=== PATIENT | female | born 1965 | race Caucasian/White ===

== ENCOUNTER 2016-08-07 07:00 | Day surgery (SDC) | payer OTHER ==
[~2016-08-07] VITALS: Ht 170.2 cm; Wt 78.9 kg
[~2016-08-07 07:00] MED LIST: 0.9% Sodium Chloride 1,000 ML IV SCH; MEDR10TA9 PO; METF500T4 PO; Sodium Chloride LOK Flush 10 mL Syringe IV PRN; fentaNYL-PF 50 mCg/mL 2 mL Inj IVPUSH PRN
[2016-08-07 07:32] VITALS: BP 121/75; PULSE 70; RESP 16; O2SAT 99
[2016-08-07 08:22] VITALS: BP 117/72; PULSE 69; O2SAT 97
--- NOTE | 2016-08-07 08:22 | PCM.ENDCOL ---
Colonoscopy Date of Service: Aug 07, 2016 Physician Jarrod Crespo MD Pre Procedure Diagnosis: Screening Post Procedure Dx & Findings: Polyp hemorrhoids diverticuli fecalith in the appendiceal orifice Procedure Colonoscopy PROCEDURE IN DETAIL: Prep adequate Withdrawal time 13 minutes After unremarkable rectal examination the Olympus video colonoscope was inserted patient's anal canal and was advanced to cecum. Landmarks were identified including the ileocecal valve and appendiceal orifice. There was a fecalith on the appendiceal orifice. Scope was withdrawn systematically. Visualized colonic mucosa showed healthy shiny mucosa with normal healthy- appearing vasculature. In the rectosigmoid, there were total of 4 polyps. Two polyps that were 1-1/2 mm and 2 mm respectively were next to each other. This was taken out together with a cold snare. There were two more polyps which was less than 1 mm in size and both were removed completely using cold forceps. Patient had multiple diverticula mostly in the sigmoid colon however isolated all the way up to the transverse colon. In the rectum retroflexion was done which showed hemorrhoids. Anal canal was inspected carefully on the way out and hemorrhoids noted. Impression Polyp 4 status post complete removal hemorrhoids diverticuli fecalith in the appendiceal orifice Hemorrhoids Recommendation Repeat colonoscopy 3 years Effort to clear diet Presedation Assessment Risks and Benefits Informed consent was obtained from the patient after all risks and benefits including but not limited to drug reaction, infection, pain, bleeding, perforation, as well as alternatives were discussed. Patient monitoring Continuous pulse oximetry, cardiac monitoring, blood pressure monitoring, IV access, and oxygen at 2L per nasal cannula. Periprocedural Fentanyl: Fentanyl 100mcg Incrementally Midazolam: Midazolam 5mg Incrementally Complications There were no periprocedural complications identified. Post Procedure Plan Post Procedure Recommendations 1. Restrict activities today. 2. Resume normal activities in the morning. 3. Resume medications. 4. Patient informed of normal post procedure side effects as bloating, drowsiness, blood streaking in the stool. 5. average risk CRCS. If colon polyps come back as: -Hyperplastic- can repeat colonoscopy in 10 years -Tubular adenoma- repeat colonoscopy in 5 years -Tubulovillous/villous adenoma- repeat colonoscopy in 3 years -If any dysplasia- return to clinic as soon as possible 6. Please don't hesitate to call me with any questions. Jarrod Crespo MD Aug 07, 2016 08:22
--- NOTE | 2016-08-07 08:22 | PCM.ENDCOL ---
Colonoscopy Date of Service: Aug 07, 2016 Physician Jarrod Crespo MD Procedure Error. Presedation Assessment Risks and Benefits Informed consent was obtained from the patient after all risks and benefits including but not limited to drug reaction, infection, pain, bleeding, perforation, as well as alternatives were discussed. Patient monitoring Continuous pulse oximetry, cardiac monitoring, blood pressure monitoring, IV access, and oxygen at 2L per nasal cannula. Complications There were no periprocedural complications identified. Post Procedure Plan Post Procedure Recommendations 1. Restrict activities today. 2. Resume normal activities in the morning. 3. Resume medications. 4. Patient informed of normal post procedure side effects as bloating, drowsiness, blood streaking in the stool. 5. average risk CRCS. If colon polyps come back as: -Hyperplastic- can repeat colonoscopy in 10 years -Tubular adenoma- repeat colonoscopy in 5 years -Tubulovillous/villous adenoma- repeat colonoscopy in 3 years -If any dysplasia- return to clinic as soon as possible 6. Please don't hesitate to call me with any questions. Jarrod Crespo MD Aug 07, 2016 08:22 There were no periprocedural complications identified. Post Procedure Plan Post Procedure Recommendations 1. Restrict activities today. 2. Resume normal activities in the morning. 3. Resume medications. 4. Patient informed of normal post procedure side effects as bloating, drowsiness, blood streaking in the stool. 5. average risk CRCS. If colon polyps come back as: -Hyperplastic- can repeat colonoscopy in 10 years -Tubular adenoma- repeat colonoscopy in 5 years -Tubulovillous/villous adenoma- repeat colonoscopy in 3 years -If any dysplasia- return to clinic as soon as possible 6. Please don't hesitate to call me with any questions. Jarrod Crespo MD Aug 07, 2016 08:22
[2016-08-07 08:31] VITALS: BP 117/90; PULSE 79; O2SAT 99
--- NOTE | 2016-08-08 11:30 | PATH ---
SURGICAL PATHOLOGY Attending Physician:Jarrod Crespo M.D. CASE STATUS: Signed Out PATIENT NAME: HENRY GOLDBERG PID: [id number] : 1965 DATE COLLECTED:08/07/2016 20:40 SPECIMEN: Colon, Biopsy CLINICAL HISTORY: 1). RECTOSIGMOID POLYPS X3 FINAL DIAGNOSIS: 1.RECTOSIGMOID POLYPS: HYPERPLASTIC POLYP INVOLVING ALL THREE BIOPSY FRAGMENTS. ICD10 D12.7 GROSS DESCRIPTION: The specimen is received in one formalin filled container labeled with the patient's name, sublabeled "rectosigmoid polyp" and consists of 3 portions of tissue which aggregate to 0.4 x 0.4 x 0.3 CM. The specimen is entirely submitted in one cassette. 08/07/2016 [facility] MICRO DESCRIPTION: See diagnosis. ICD-9 CODES: CPT CODES: 1: 56238 Electronically Signed Out Ulysses Alvarez MD [facility] [address], [place] [address] Technical component performed at [facility], [address] [place] [address] Ave[address], [place], [address]
== END 2016-08-07 23:59 | disposition home or self-care (01) ==
LOC: END 07:00
PROVIDERS: ATTEND Internal Medicine
DX: Z12.11 Encounter for screening for malignant neoplasm of colon (principal); K62.1 Rectal polyp; K63.5 Polyp of colon; D12.7 Benign neoplasm of rectosigmoid junction; K57.30 Diverticulosis of large intestine without perforation or abscess without bleeding; K64.9 Unspecified hemorrhoids; K38.1 Appendicular concretions; E11.9 Type 2 diabetes mellitus without complications; Z79.84 Long term (current) use of oral hypoglycemic drugs
CPT/HCPCS: 45380; 45385; 99153; G0500; J7030

== ENCOUNTER 2016-10-19 12:20 | Emergency (ER) | payer OTHER ==
[~2016-10-19] VITALS: Ht 170.2 cm; Wt 79.1 kg
[~2016-10-19 12:20] MED LIST changes: -0.9% Sodium Chloride 1,000 ML IV SCH; -Sodium Chloride LOK Flush 10 mL Syringe IV PRN; -fentaNYL-PF 50 mCg/mL 2 mL Inj IVPUSH PRN
[2016-10-19 12:22] VITALS: BP 155/58; PULSE 70; RESP 15; O2SAT 99
--- NOTE | 2016-10-19 12:51 | ED.REPORT ---
HPI-Neurologic Deficit Date of Service Oct 19, 2016 ED Provider: Jhonatan Juarez MD Pt is a 51 year old female with a hx of DM presenting to the ED via EMS complaining of sudden onset sharp pain in her head onset around 1120 while [address] to work. Associated symptoms include right sided peripheral blurred vision, dizziness, SOB, nausea, slurred speech, and shakiness. Denies chest pain. She does not have a hx of high blood pressure but her BP was 180/110 when symptoms began. Pt went into a clinic and said "Help me" and they called EMS. She denies any hx of a similar episode. Nursing Notes Stated Complaint: HYPERTENSION Chief Complaint: Neuro Symptoms/ Deficits Nursing Notes Reviewed: Yes Allergies: Coded Allergies: No Known Allergies (Unverified , 10/19/16) Scheduled Medroxyprogesterone (Medroxyprogesterone) 10 Mg Tablet 10 MG PO DAILY Metformin (Metformin) 500 Mg Tablet 500 MG PO DAILY General Time Seen by Provider: 12:41 Chief Complaint Sudden onset headache Hx Obtained From: Patient Arrived By: Walk-in Sudden in Onset?: Yes Onset Occurred: Just prior to arrival Symptom Duration: Since onset Location: : Head Severity: Current: No pain currently Severity: Maximum: Severe Associated with: Reports: Altered sensation, Nausea, Visual disturbance Recent Healthcare: No recent doctor visit, No recent hospitalization Similar Sx Previous: No Risk Factors NIH Stroke Scale Level of Consciousness: Alert and responsive (0) Ask Month & Age: Both questions right (0) Open/Close Eyes/Hand Tunnel Heading Inspector: Performs both tasks (0) Horizontal EO Movements: None (0) Visual Zarate: No visual loss (0) Facial Palsy: Normal symmetry (0) Right Arm Motor Drift (10s): No drift 10 sec (0) Left Arm Motor Drift (10s): No drift 10 sec (0) Right Leg Motor Drift (5s): No drift 5 sec (0) Left Leg Motor Drift (5s): No drift 5 sec (0) Limb Ataxia FNF/Heel-Finch: No ataxia (0) Sensation (Arms/Legs/Face): No sensory loss (0) Language Aphasia: No aphasia, normal (0) Dysarthria: No dysarthria, normal (0) Extinction/Inattention: No exctinct/inattent (0) Time NIHSS Performed: 12:57 Past Medical History Past Medical History Reports: Diabetes mellitus Past Surgical History denies Smoking History Current Every Day Smoker Social History Drug Use: Denies drug use Ambulatory Status Independent Review of Systems Eyes: Reports: Blurred right Respiratory: Reports: Shortness of breath Cardiovascular: Denies: Chest pain GI: Reports: Nausea Neurologic: Reports: Dizziness, Headache, Shaking, Slurred speech, Vision change Complete sys rev & neg: except as marked. Physical Exam Initial Vital Signs Vital Signs (First) Date Time Temp Pulse Resp B/P Pulse Ox O2 Delivery O2 Flow Rate FiO2 10/19/16 12:22 36.6 70 15 155/58 99 Room Air Initial VS: Reviewed ENT: Mucous membranes moist, Conjunctiva normal, No scleral icterus Neck: Supple, Non-tender, Full range of motion Abdomen / GI: Soft, Non-tender, No guarding, No rebound, No distention Extremities: Vascular intact, Neuro intact, No swelling, No tenderness Skin: Warm, Dry, No cyanosis Psychiatric: Mood/affect normal, Behavior normal, Normal thought content General/Constitutional: Awake, Alert, No acute distress Head / Eyes: Atraumatic, Normocephalic, PERRL, EOMI Respiratory / Chest: Atraumatic, Breath sounds NL, Breath sounds = bilat, No respiratory distress Cardiovascular: Heart rate NL, Regular rhythm, Heart sounds NL, No gallop, No murmurs, No rubs Neurologic: Oriented X3, Speech NL, No motor deficits, No sensory deficits, CN II - XII intact, Reflexes equal bilat, Cerebellar NL Able to count fingers. NIH score 0. Interpretation & Diagnostics Lab Results Interpretation Result Diagram: 10/19/16 1230 10/19/16 1230 Test 10/19/16 12:30 10/19/16 14:30 White Blood Count 10.0th/mm3 (3.8-10.1) Red Blood Count 5.00mil/mm3 (3.90-5.20) Hemoglobin 15.0g/dL (12.0-15.6) Hematocrit 42.4% (35.0-46.0) Mean Corpuscular Volume 84.8fL (81-100) Mean Corpuscular Hemoglobin 30.0pg (27.0-35.0) Mean Corpuscular Hemoglobin Concent 35.4% (32.0-37.0) Red Cell Distribution Width 12.7% (12.3-15.4) Platelet Count 237bil/L (150-400) Neutrophils (%) (Auto) 64.4% (40-74) Lymphocytes (%) (Auto) 25.3% (14-46) Monocytes (%) (Auto) 7.1% (4-12) Eosinophils (%) (Auto) 2.5% (0-5) Basophils (%) (Auto) 0.3% (0-3) Prothrombin Time 9.6sec (8.1-12.5) Prothromb Time International Ratio 0.90ratio Sodium Level 139mEq/L (134-144) Potassium Level 3.6mEq/L (3.5-5.2) Chloride Level 100mEq/L (97-108) Carbon Dioxide Level 19mmol/L (18-29) Blood Urea Nitrogen 23mg/dL (6-24) Creatinine 0.60mg/dL (0.57-1.00) Estimat Glomerular Filtration Rate 151mL/min (>59) Glucose Level 138mg/dL (60-99) Calcium Level 10.0mg/dL (8.5-10.1) Total Bilirubin 0.6mg/dL (0.0-1.2) Aspartate Amino Transf (AST/SGOT) 18U/L (0-50) Alanine Aminotransferase (ALT/SGPT) 20U/L (0-32) Alkaline Phosphatase 75U/L (25-150) Troponin T < 0.010ug/L (0.0-0.011) Total Protein 7.4g/dL (6.4-8.4) Albumin 4.6g/dL (3.4-5.0) Hold Urine Received (Received) ECG Interpretation ECG Interpretation: No ST-T changes. Time: 15:08 Interpreted by: ED physician Normal ECG Interpretation: Normal rate (72) X-Ray Chest Interpretation Chest Xray Interpretation: IMPRESSION: No acute cardiopulmonary disease. Multiple nonacute right lateral rib fractures. Dictated by: Aris Frye M.D. on 10/19/2016 at 13:15 View: Portable, 1 view Interpretation / Wet Read by: Interpret - Radiologist CT Head Interpretation IMPRESSION: Negative head CT. No acute intracranial hemorrhage. Dictated by: Brennan Hayes M.D. on 10/19/2016 at 12:10 Study: Head CT no contrast Interpretation / Wet Read by: Interpret - Radiologist Re-Eval/Medical Decision Med Decision/Clinical Course 51-year-old female presenting complaining of right eye blurry vision and difficulty speaking earlier today which was very short-lived. Resolved by arrival. She had no focal neuro deficits on exam. Her blood pressure was elevated in the field though normal here. CT brain no acute pathology. She reports anxiety. Cannot rule out TIA though patient did not want to be admitted to the hospital understanding the risks of stroke up to the possibility of . It could also be anxiety or hypertensive urgency now resolved. She declined admission. She will take a daily aspirin and follow up with primary doctor. Return precautions given. Re-Evaluation/Progress #1: Time of Eval: 12:55 Patient Status: Condition improved Re-Evaluation/Progress Note: Pt is back from CT. Discussed HPI. Re-Evaluation/Progress #2: Time of Eval: 15:01 Re-Evaluation/Progress Note: Discussed plan for discharge. Pt understands and agrees with plan. Counseled Regarding: Diagnosis, Lab results, Need for follow-up, When/why to return to ED Discharge & Departure Impression: Primary Impression: Blurry vision, right eye Additional Impressions: Dysarthria TIA (transient ischemic attack) Transient cerebral ischemia type: unspecified Qualified Code: G45.9 - Transient cerebral ischemic attack, unspecified Disposition: Home Discharge Condition All VS Reviewed: Yes Condition: Improved Patient Instructions: Blurred Vision (ED) Additional Instructions: Your CT scan and labs do not show any clear cause for your symptoms. You may have had a mini stroke but you request to go home. This may be related to anxiety or your elevated blood pressure which is now normal. Take aspirin daily and follow up with your primary care doctor tomorrow. Return to the ER for any new blurry vision, numbness, tingling, difficultly speaking or swallowing, weakness, chest pain, difficulty breathing, or any other new or worsening symptoms. Referrals: Codey Nevarez MD (PCP) [facility] Attestation Portions of this note were transcribed by Kinza Mora. I, Dr. Juarez personally performed the history, physical exam and medical decision-making; I reviewed and confirmed the accuracy of the information in the transcribed note. Signed by: Gurwinder Mcfarlane, 10/19/2016. copies to: Codey Nevarez MD, HANNAH Oct 19, 2016 12:51 Jhonatan Juarez MD Oct 19, 2016 19:00
[2016-10-19 12:58] LABS: BASOPHILS % (AUTO) 0.3 % (0-3); EOSINOPHILS % (AUTO) 2.5 % (0-5); MONOCYTES % (AUTO) 7.1 % (4-12); Mean Corpuscular Volume 84.8 fL (81-100); NEUTROPHILS % (AUTO) 64.4 % (40-74); Platelet Count 237 bil/L (150-400)
[2016-10-19 13:01] LABS: INR 0.9 ratio
--- NOTE | 2016-10-19 13:12 | DRSVH ---
PROCEDURE: CT BRAIN WITHOUT CONTRAST ([id number]) INDICATIONS: ramirez, dizzy, TECHNIQUE: Noncontrast 4.5 mm thick angled axial sections acquired from the foramen magnum to the vertex, with c oronal reformats. COMPARISON: None. FINDINGS: Image quality: Excellent. CSF spaces: Basal cisterns are patent. No extra-axial fluid collections. Ventricles are normal in size and shape. Brain: No midline shift. No intracranial masses or hemorrhage. Deng-white matter interface is norm al. Skull and face: Calvarium and visualized facial bones are intact, without suspicious lesions. A ski n nodule overlying the convexity of the head to the right of midline would be better evaluated on cli nical exam. Sinuses: Visualized sinuses and mastoids are clear. IMPRESSION: Negative head CT. No acute intracranial hemorrhage. Dictated by: Brennan Hayes M.D. on 10/19/2016 at 12:10 Approved by: Brennan Hayes M.D. on 10/19/2016 at 12:11
--- NOTE | 2016-10-19 13:17 | DRSVH ---
PROCEDURE: X-RAY CHEST ONE VIEW, PORTABLE ([id number]) INDICATIONS: 51 year-old female with near syncope. TECHNIQUE: One view of the chest was acquired. COMPARISON: [facility], CR, XR CHEST 2VW, 10/09/2014, 15:46. FINDINGS: Surgical changes and devices: None. Lungs and pleura: No pleural effusions or pneumothorax. Lungs are clear. Mediastinum: Mediastinal contours appear normal. Heart size is normal. Bones and chest wall: No suspicious bony lesions. Nonacute right fourth through seventh rib fractur es are again noted. Overlying soft tissues appear unremarkable. IMPRESSION: No acute cardiopulmonary disease. Multiple nonacute right lateral rib fractures. Dictated by: Aris Frye M.D. on 10/19/2016 at 13:15 Approved by: Aris Frye M.D. on 10/19/2016 at 13:16
[2016-10-19 13:25] LABS: TROPONIN T < 0.010 ug/L (0.0-0.011)
[2016-10-19 14:12] VITALS: BP 132/67; PULSE 60; RESP 16; O2SAT 99
--- NOTE | 2016-10-19 14:27 | NUR ---
Evaluation completed. Please go to "Notes" then click on "Assessments and Notes" (bottom left corner of screen). Then select appropriate discipline tab on top of screen.
[2016-10-19 15:54] VITALS: BP 117/56; PULSE 66; RESP 19; O2SAT 95
== END 2016-10-19 15:55 | disposition home or self-care (01) ==
LOC: SED 12:20
DX: H53.8 Other visual disturbances (principal); R47.1 Dysarthria and anarthria; G45.9 Transient cerebral ischemic attack, unspecified; E11.9 Type 2 diabetes mellitus without complications; F17.200 Nicotine dependence, unspecified, uncomplicated; Z79.84 Long term (current) use of oral hypoglycemic drugs